=== PATIENT | female | born 1990 | race Caucasian/White ===

== ENCOUNTER 2017-12-24 18:38 | Emergency (ER) | payer SELFPAY | END 2017-12-24 18:55 | disposition left against medical advice (07) | LOC: ED 18:38 | DX: K08.9 Disorder of teeth and supporting structures, unspecified (principal); Z53.21 Procedure and treatment not carried out due to patient leaving prior to being seen by health care provider ==

== ENCOUNTER 2017-12-27 18:32 | Emergency (ER) | payer SELFPAY ==
[2017-12-27] MEDS ORDERED: ALPRAZOLAM1 MG PO ×2 (18:48→19:46)
[2017-12-27] MEDS ORDERED: SPRINTEC 35 MCG1 TAB PO (18:49)
[2017-12-27] MEDS ORDERED: LORAZEPAM1 M1 PO (19:37)
[2017-12-27 20:02] VITALS: BP 112/63
== END 2017-12-27 20:02 | disposition home or self-care (01) ==
LOC: ED 18:32
DX: F41.1 Generalized anxiety disorder (principal); F41.0 Panic disorder [episodic paroxysmal anxiety]